=== PATIENT | female | born 2000 | race Caucasian/White ===

== ENCOUNTER 2019-08-11 18:10 | Emergency (ER) | payer MEDICAID ==
[2019-08-11 18:27] VITALS: BP 131/78; PULSE 88
--- NOTE | 2019-08-11 20:36 | EDM.PDOCBH ---
ED HPI GENERAL MEDICAL PROBLEM - General Chief Complaint: Behavioral/Psych Stated Complaint: EVAL Time Seen by Provider: 08/11/19 20:28 Source of Information: Reports: Patient, Old Records, RN, Other (oncology social work) History Limitations: Reports: Other (took over 2 hrs to figure out through oncology social work why the patient was even here.) - History of Present Illness INITIAL COMMENTS - FREE TEXT/NARRATIVE: 19 yo female recently left [facility] after her 72 hr hold was up. Apparently, while she was there [employer] was working on an extended hold through the [employer] for drug use and other mental health issues. The court hold did not come through in time so Sandy was allowed to leave. Since the court ordered hold was put in effect the police, social workers, etc had not been able to catch up with her. Sandy comes to the [facility] on her own accompanied by her boyfriend's family. She has been working since getting out of [place]. Claims she is doing well. Onset: Unknown/Unsure Duration: Waxing/Waning Location: Reports: Generalized Quality: Reports: Other (no pain reported.) Severity: Moderate Improves with: Reports: Other (? abstinence from drugs) Worsens with: Reports: Other (? drug use.) Context: Reports: Other (See HPI) Associated Symptoms: Reports: No Other Symptoms Treatments DIRECTOR VALIDATION: Reports: Other (see below) (none since leaving [facility]. ) - Related Data Allergies Allergy/AdvReac Type Severity Reaction Status Date / Time No Known Allergies Allergy Verified 07/11/16 11:30 Home Meds: Home Meds Lurasidone HCl [Latuda] 20 mg PO DAILY 08/11/19 [History] Lurasidone HCl [Latuda] 40 mg PO BEDTIME 08/11/19 [History] Norgestimate-Ethinyl Estradiol [[place] 28 Tablet] 1 tab PO DAILY 08/11/19 [ History] OLANZapine [Olanzapine] 10 mg PO BEDTIME 08/11/19 [History] Sertraline HCl 1 tab PO DAILY 08/11/19 [History] busPIRone [Buspar] 5 mg PO BID 08/11/19 [History] Past Medical History - Past Health History Medical/Surgical History: Denies Medical/Surgical History Social & Family History - Tobacco Use Smoking Status *Q: Current Every Day Smoker Years of Tobacco use: 3 Packs/Tins Daily: 1 - Caffeine Use Caffeine Use: Reports: Coffee, Soda - Recreational Drug Use Recreational Drug Use: Yes Recreational Drug Type: Reports: Marijuana/Hashish ED ROS GENERAL - Review of Systems Review Of Systems: See Below Constitutional: Reports: No Symptoms HEENT: Reports: No Symptoms Respiratory: Reports: No Symptoms Cardiovascular: Reports: No Symptoms Endocrine: Reports: No Symptoms GI/Abdominal: Reports: No Symptoms : Reports: No Symptoms Musculoskeletal: Reports: No Symptoms Skin: Reports: No Symptoms Neurological: Reports: No Symptoms Psychiatric: Reports: No Symptoms ED EXAM, BEHAVIORAL HEALTH - Physical Exam Exam: See Below Exam Limited By: No Limitations General Appearance: Alert, WD/WN, No Apparent Distress Eye Exam: Bilateral Eye: Normal Inspection Ears: Normal External Exam, Normal Canal, Hearing Grossly Normal, Normal TMs Nose: Normal Inspection, No Blood Throat/Mouth: Normal Inspection, Normal Lips, Normal Oropharynx, Normal Voice, No Airway Compromise Head: Atraumatic, Normocephalic Neck: Normal Inspection, Non-Tender Respiratory/Chest: No Respiratory Distress, Lungs Clear, Normal Breath Sounds, No Accessory Muscle Use Cardiovascular: Regular Rate, Rhythm, No Edema Back Exam: Normal Inspection. No: CVA Tenderness (R), CVA Tenderness (L) Extremities: Normal Inspection, No Pedal Edema Neurological: Alert, Normal Mood/Affect, Normal Cognition, No Motor/Sensory Deficits, Oriented x 3 Psychiatric: Alert, Normal Affect, Normal Cognition, Normal Mood, Oriented, Other (Very cooperative and patient through about 3.5 hrs in the ER while we tried to get things figured out. ) Skin Exam: Warm, Dry, Intact, Normal color, No rash COURSE, BEHAVIORAL HEALTH COMP - Course Vital Signs: Last Vital Signs Temp 36.5 C 08/11/19 18:31 Pulse 88 08/11/19 18:31 Resp 16 08/11/19 18:31 BP 131/78 08/11/19 18:31 Pulse Ox 96 08/11/19 18:31 Orders, Labs, Meds: Laboratory Tests 08/11/19 08/11/19 Range/Units 19:58 20:02 Urine Opiates Screen Negative (NEGATIVE) Ur Oxycodone Screen Negative (NEGATIVE) Urine Methadone Screen Negative (NEGATIVE) Ur Propoxyphene Screen Negative (NEGATIVE) Ur Barbiturates Screen Negative (NEGATIVE) Ur Tricyclics Screen Negative (NEGATIVE) Ur Phencyclidine Scrn Negative (NEGATIVE) Ur Amphetamine Screen Negative (NEGATIVE) U Methamphetamines Scrn Negative (NEGATIVE) Urine MDMA Screen Negative (NEGATIVE) U Benzodiazepines Scrn Negative (NEGATIVE) U Cocaine Metab Screen Negative (NEGATIVE) U Marijuana (THC) Screen Negative (NEGATIVE) Ethyl Alcohol < 3 mg/dL Medical Clearance: 08/11/19 21:26 Cleared medically. Neither the oncology social work or police were able to come here or provide us with documentation necessary to proceed with having her committed to [facility]. Will discharge at this time. Departure - Departure Time of Disposition: 21:27 Disposition: Home, Self-Care 01 Condition: Good Clinical Impression: Mental health disorder - Discharge Information *PRESCRIPTION DRUG MONITORING PROGRAM REVIEWED*: No *COPY OF PRESCRIPTION DRUG MONITORING REPORT IN PATIENT GRACIELA: No Referrals: PCP,None [Primary Care Provider] - Forms: ED Department Discharge Additional Instructions: Home tonight. business services director may get in touch with you in the near future. Sepsis Event Note - Evaluation Sepsis Screening Result: No Definite Risk - Focused Exam Vital Signs: Vital Signs Temp Pulse Resp BP Pulse Ox 08/11/19 18:31 36.5 C 88 16 131/78 96 08/11/19 18:26 36.5 C 88 16 131/78 96 Date Exam was Performed: 08/11/19 Time Exam was Performed: 21:24
== END 2019-08-11 21:36 | disposition home or self-care (01) ==
LOC: JP.ED 18:10
DX: F99 Mental disorder, not otherwise specified (principal); F17.210 Nicotine dependence, cigarettes, uncomplicated
CPT/HCPCS: 36415; 80305-QW; 99284; G0480

== ENCOUNTER 2020-06-28 10:10 | Emergency (ER) | payer MEDICAID ==
[2020-06-28 10:26] VITALS: BP 143/84; PULSE 88
== END 2020-06-28 10:28 | disposition left against medical advice (07) ==
LOC: JP.ED 10:10
DX: Z53.21 Procedure and treatment not carried out due to patient leaving prior to being seen by health care provider (principal)

== ENCOUNTER 2020-07-05 23:10 | Emergency (ER) | payer MEDICAID ==
[2020-07-05 23:41] VITALS: BP 122/81; PULSE 99
--- NOTE | 2020-07-05 23:49 | EDM.PDOC ---
ED HPI GENERAL MEDICAL PROBLEM - General Chief Complaint: Skin Complaint Stated Complaint: POSSIBLE INFECTION IN R HAND Time Seen by Provider: 07/05/20 23:42 Source of Information: Reports: Patient, Family, RN Notes Reviewed History Limitations: Reports: No Limitations - History of Present Illness INITIAL COMMENTS - FREE TEXT/NARRATIVE: 20-year-old female presents emergency department today with a wound on her right hand this is about 3 weeks old she is concerned about infection - Related Data Allergies Allergy/AdvReac Type Severity Reaction Status Date / Time No Known Allergies Allergy Verified 07/05/20 23:32 Home Meds: Home Meds NK [No Known Home Meds] 07/05/20 [History] Past Medical History - Past Health History Medical/Surgical History: Denies Medical/Surgical History Social & Family History - Tobacco Use Tobacco Use Status *Q: Current Every Day Tobacco User Years of Tobacco use: 5 Packs/Tins Daily: 1 - Caffeine Use Caffeine Use: Reports: None - Recreational Drug Use Recreational Drug Use: Yes Drug Use in Last 12 Months: Yes Recreational Drug Type: Reports: Marijuana/Hashish ED ROS GENERAL - Review of Systems Review Of Systems: See Below Constitutional: Reports: No Symptoms Skin: Reports: Wound ED EXAM, SKIN/RASH Exam: See Below Text/Narrative:: Examination of the right hand there to Ronen is appreciated about 1 cm in diameter there is small amount erythema around the wound as well as some local edema I do not appreciate any red streaks up the arm or there is no significant erythema on the dorsal surface of the hand radial pulses +2 Course - Vital Signs Last Recorded V/S: Last Vital Signs Temp 98.2 F 07/05/20 23:33 Pulse 99 07/05/20 23:33 Resp 16 07/05/20 23:33 BP 122/81 07/05/20 23:33 Pulse Ox 100 07/05/20 23:33 Departure - Departure Time of Disposition: 23:48 Disposition: Home, Self-Care 01 Condition: Fair Clinical Impression: Chronic wound of extremity - Discharge Information Instructions: Wound Care, Adult Referrals: PCP,None [Primary Care Provider] - Additional Instructions: Please call the [facility] in the morning on Wednesday for an appointment time with Dr. Montgomery for further evaluation of your chronic wound Sepsis Event Note (ED) - Evaluation Sepsis Screening Result: No Definite Risk - Focused Exam Vital Signs: Vital Signs Temp Pulse Resp BP Pulse Ox 07/05/20 23:33 98.2 F 99 16 122/81 100 - Assessment/Plan Plan: Assessment Acuity = acute Site and laterality = chronic wound Etiology = secondary to trauma Manifestations = none Location of injury = Home Lab values = none Plan She asked that I cut these off her hand and so her back up he stated I would not be providing that service however I did offer her referral to wound care consultation was set up with Dr. Montgomery she will call the clinic on Wednesday for an appointment time This note was dictated using Flinqer voice recognition software please call with any questions on syntax or grammar.
== END 2020-07-05 23:56 | disposition home or self-care (01) ==
LOC: JP.ED 23:10
DX: S61.401A Unspecified open wound of right hand, initial encounter (principal); F17.210 Nicotine dependence, cigarettes, uncomplicated; X58.XXXA Exposure to other specified factors, initial encounter
CPT/HCPCS: 99282

== ENCOUNTER 2021-02-12 22:10 | Emergency (ER) | payer MEDICAID ==
[2021-02-12 22:24] VITALS: BP 119/74; PULSE 108
--- NOTE | 2021-02-12 22:30 | EDM.PDOCBH ---
ED HPI GENERAL MEDICAL PROBLEM - General Chief Complaint: Drug or Alcohol Abuse Stated Complaint: MENTAL EVAL Time Seen by Provider: 02/12/21 23:05 Source of Information: Reports: Patient History Limitations: Reports: No Limitations - History of Present Illness INITIAL COMMENTS - FREE TEXT/NARRATIVE: She presents emergency room via [facility] law enforcement secondary to concern about methamphetamine abuse. Apparently per police report upon arrival she has been picked up multiple times today patient does state that she has been visited by the police several times she does not know why they brought him here brought her here patient denies any suicidal homicidal ideation when asked directly she states she was running for a reason when she gives example of one of the epi sodes that police came to visit her today as she was running down the road she states she was running for reason but she did declines to answer further she does deny when I asked her directly if she was concerned about somebody chasing her or fear for her safety and she did denied. She states that she lives with her mother she does admit to methamphetamine use she states last use was yesterday. Patient denies any other illicit drug use. Declines any drug rehab offerings at this time PMH/Meds--denies Tob--1/2-1ppd EtOH--denies Drugs--methamphetamine use/abuse NKDA - Related Data Allergies Allergy/AdvReac Type Severity Reaction Status Date / Time No Known Allergies Allergy Verified 02/12/21 22:15 Home Meds: Home Meds busPIRone [Buspar] 1 tab PO DAILY 02/12/21 [History] Past Medical History - Past Health History Medical/Surgical History: Denies Medical/Surgical History Psychiatric History: Reports: Addiction - Past Surgical History Head Surgeries/Procedures: Reports: None Social & Family History - Tobacco Use Tobacco Use Status *Q: Current Every Day Tobacco User Years of Tobacco use: 5 Packs/Tins Daily: 0.5 - Caffeine Use Caffeine Use: Reports: None - Recreational Drug Use Recreational Drug Type: Reports: Methamphetamine ED ROS GENERAL - Review of Systems Review Of Systems: Comprehensive ROS is negative, except as noted in HPI. Constitutional: Reports: No Symptoms HEENT: Reports: No Symptoms Respiratory: Reports: No Symptoms Cardiovascular: Reports: No Symptoms Endocrine: Reports: No Symptoms GI/Abdominal: Reports: No Symptoms : Reports: No Symptoms Musculoskeletal: Reports: No Symptoms Skin: Reports: No Symptoms Neurological: Reports: No Symptoms Psychiatric: Denies: Hallucinations, Homicidal Ideation, Suicidal Ideation Hematologic/Lymphatic: Reports: No Symptoms Immunologic: Reports: No Symptoms ED EXAM, BEHAVIORAL HEALTH - Physical Exam Exam: See Below Exam Limited By: No Limitations General Appearance: Alert, WD/WN, No Apparent Distress Eye Exam: Bilateral Eye: EOMI, Normal Inspection Ears: Normal External Exam, Hearing Grossly Normal Nose: Normal Inspection Throat/Mouth: Normal Inspection, Normal Oropharynx, Normal Voice, No Airway Compromise Head: Atraumatic, Normocephalic Neck: Normal Inspection, Supple, Full Range of Motion Respiratory/Chest: No Respiratory Distress, Lungs Clear, Normal Breath Sounds Cardiovascular: Normal Peripheral Pulses, Regular Rate, Rhythm, No Edema, No Murmur GI/Abdominal: Normal Bowel Sounds, Soft, Non-Tender (Female) Exam: Deferred Rectal (Female) Exam: Deferred Back Exam: Normal Inspection, Full Range of Motion Extremities: Normal Inspection, Normal Range of Motion, Normal Capillary Refill Neurological: Alert, Normal Mood/Affect, Normal Gait, Oriented x 3 Psychiatric: Alert, Normal Affect, Normal Cognition, Normal Mood Skin Exam: Warm, Dry, Intact, Normal color COURSE, BEHAVIORAL HEALTH COMP - Course Vital Signs: Last Vital Signs Temp 98.7 F 02/12/21 22:24 Pulse 108 H 02/12/21 22:24 Resp 16 02/12/21 22:24 BP 119/74 02/12/21 22:24 Pulse Ox 98 02/12/21 22:24 Orders, Labs, Meds: Active Orders 24 hr Category Date Time Status BASIC METABOLIC PANEL,BMP [CHEM] Urgent Lab 02/12/21 22:43 Received DRUG SCREEN, URINE [URCHEM] Urgent Lab 02/12/21 22:28 Ordered ETHANOL BLOOD MEDICAL [CHEM] Urgent Lab 02/12/21 22:43 Received HCG QUALITATIVE,URINE [URCHEM] Urgent Lab 02/12/21 22:28 Ordered T4 FREE [CHEM] Urgent Lab 02/12/21 22:43 Received UA W/MICROSCOPIC [URIN] Urgent Lab 02/12/21 22:28 Ordered Laboratory Tests 02/12/21 Range/Units 22:43 WBC 12.2 H (4.5-11.0) K/uL RBC 4.56 (3.30-5.50) M/uL Hgb 13.6 (12.0-15.0) g/dL Hct 39.3 (36.0-48.0) % MCV 86 (80-98) fL MCH 30 (27-31) pg MCHC 35 (32-36) % Plt Count 216 (150-400) K/uL Neut % (Auto) 75.5 H (36-66) % Lymph % (Auto) 14.0 L (24-44) % [place] % (Auto) 9.9 H (2-6) % Eos % (Auto) 0.4 L (2-4) % Baso % (Auto) 0.2 (0-1) % Re-Assessment/Re-Exam: Patient declines referral to drug rehab. she is not suicidal or homicidal. She does admit to illicit drug usage specifically methamphetamine yesterday she does not know why [facility] law enforcement brought her to [facility] emergency room. At this time will discharge home, no acute findings of concern in medical screening exam were noted Departure - Departure Time of Disposition: 23:10 Disposition: Home, Self-Care 01 Clinical Impression: Methamphetamine abuse - Discharge Information *PRESCRIPTION DRUG MONITORING PROGRAM REVIEWED*: Not Applicable *COPY OF PRESCRIPTION DRUG MONITORING REPORT IN PATIENT GRACIELA: Not Applicable Instructions: Methamphetamines Use Disorder Referrals: PCP,None [Primary Care Provider] - Forms: ED Department Discharge Sepsis Event Note (ED) - Evaluation Sepsis Screening Result: No Definite Risk - Focused Exam Vital Signs: Vital Signs Temp Pulse Resp BP Pulse Ox 02/12/21 22:24 98.7 F 108 H 16 119/74 98 02/12/21 22:23 98.7 F 108 H 16 119/74 98 - My Orders Last 24 Hours: My Active Orders 02/12/21 22:28 DRUG SCREEN, URINE [URCHEM] Urgent HCG QUALITATIVE,URINE [URCHEM] Urgent UA W/MICROSCOPIC [URIN] Urgent 02/12/21 22:43 BASIC METABOLIC PANEL,BMP [CHEM] Urgent ETHANOL BLOOD MEDICAL [CHEM] Urgent T4 FREE [CHEM] Urgent - Assessment/Plan Last 24 Hours: My Active Orders 02/12/21 22:28 DRUG SCREEN, URINE [URCHEM] Urgent HCG QUALITATIVE,URINE [URCHEM] Urgent UA W/MICROSCOPIC [URIN] Urgent 02/12/21 22:43 BASIC METABOLIC PANEL,BMP [CHEM] Urgent ETHANOL BLOOD MEDICAL [CHEM] Urgent T4 FREE [CHEM] Urgent
== END 2021-02-12 23:21 | disposition home or self-care (01) ==
LOC: JP.ED 22:10
DX: F15.10 Other stimulant abuse, uncomplicated (principal); Z72.0 Tobacco use; Z79.899 Other long term (current) drug therapy
CPT/HCPCS: 36415; 80048; 80307; 84439; 85025; 99284

== ENCOUNTER 2022-03-11 01:36 | Emergency (ER) | payer MEDICAID ==
[2022-03-11 01:59] VITALS: BP 133/90; PULSE 88
[2022-03-11] MEDS: OLANZapine 5 MG Tab PO ONE (02:58)
[2022-03-11] MEDS ORDERED: OLANZapine 5 MG Tab PO SCH (21:00)
== END 2022-03-11 03:30 | disposition home or self-care (01) ==
LOC: JP.ED 01:36
DX: F29 Unspecified psychosis not due to a substance or known physiological condition (principal); F15.10 Other stimulant abuse, uncomplicated; F17.210 Nicotine dependence, cigarettes, uncomplicated
CPT/HCPCS: 36415; 80048; 84443; 85025; 99284; A9270

== ENCOUNTER 2022-05-08 20:07 | Emergency (ER) | payer MEDICAID ==
[2022-05-08 20:22] VITALS: BP 151/101; PULSE 84
[2022-05-08] MEDS ORDERED: cefTRIAXone 500 MG Vial IM ONE (21:41)
[2022-05-08] MEDS ORDERED: Lidocaine 1% 5 ML VIAL INJECT ONE (21:47)
[2022-05-13 10:13] LABS: CHLAMYDIA TRACHOMATIS, NAA Negative (Negative); NEISSERIA GONORRHOEAE, NAA Negative (Negative)
== END 2022-05-08 22:30 | disposition home or self-care (01) ==
LOC: JP.ED 20:07
DX: N39.0 Urinary tract infection, site not specified (principal); N76.0 Acute vaginitis; B96.89 Other specified bacterial agents as the cause of diseases classified elsewhere; F15.10 Other stimulant abuse, uncomplicated; F17.210 Nicotine dependence, cigarettes, uncomplicated; Z20.2 Contact with and (suspected) exposure to infections with a predominantly sexual mode of transmission
CPT/HCPCS: 80305-QW; 81001; 87086; 87088; 87186; 87210; 87491; 87591; 99283

== ENCOUNTER 2022-05-15 16:19 | Emergency (ER) | payer MEDICAID | END 2022-05-15 16:52 | disposition left against medical advice (07) | LOC: JP.ED 16:19 | DX: Z53.21 Procedure and treatment not carried out due to patient leaving prior to being seen by health care provider (principal) ==